=== PATIENT | male | born 1990 ===

== ENCOUNTER 2021-05-14 15:50 | Outpatient (CLI) | payer OTHER ==
--- NOTE | 2021-05-15 01:14 | XRAY Report ---
PROCEDURE: Foot 3 View LT INDICATIONS: LACERATION WITH FB LEFT FOOT TECHNIQUE: 3 views of the foot were acquired. COMPARISON: None. FINDINGS: Bones: No fractures or dislocations. No suspicious bony lesions. Soft tissues: No radiopaque foreign body identified. IMPRESSION: 1. No fracture or radiopaque foreign body. Reviewed by: Paul Greenberg MD on 05/15/2021 1:13 AM [facility] Approved by: Paul Greenberg MD on 05/15/2021 1:13 AM [facility] Station ID: [id number]
== END 2021-05-14 15:51 | disposition home or self-care (01) ==
LOC: DI.N 15:50
PROVIDERS: ATTEND Family Medicine
DX: S91.322A Laceration with foreign body, left foot, initial encounter (principal)